=== PATIENT | male | born 1985 | race Caucasian/White ===

== ENCOUNTER 2016-10-17 12:06 | Emergency (ER) | payer SELFPAY ==
[~2016-10-17] VITALS: Ht 185.4 cm; Wt 100.0 kg
[~2016-10-17 12:06] MED LIST: FLEXERIL OR; LORTAB5 PO; NAPROSYN500 MG PO; NO MEDS
[2016-10-17 13:34] LABS: HEMATOCRIT 46.6 % (39.0-50.0); HEMOGLOBIN 14.7 g/dl (14.0-18.0); IMMATURE GRANULOCYTES 0.2 % (0.0-1.0); MEAN CELL VOLUME 83.2 fL CALC (80.0-100.0); MEAN CORPUSCULAR HGB 26.3 pG CALC (26.0-32.0); MEAN CORPUSCULAR HGB CONC 31.5 g/L CALC (32.0-36.0); NEUT# 3.59 thou/uL (1.82-7.42); RED BLOOD COUNT 5.6 mill/uL (4.70-6.10); RED CELL DISTRI WIDTH 13.7 % (11.5-15.5)
[2016-10-17 13:43] LABS: ALBUMIN 4.8 g/dL (3.2-5.0); ALKALINE PHOSPHATASE 70 u/l (38-126); ANION GAP 20 (6-22 (CALC)); BILIRUBIN, TOTAL 0.6 mg/dL (0.0-1.4); BUN 11 mg/dL (9-20); BUN/CREATININE RATIO 11 (12-20 (CALC)); CALCIUM 9.2 mg/dL (8.4-10.2); CARBON DIOXIDE 22 mmol/l (22-30); CHLORIDE 105 mmol/l (95-108); CREATININE 0.9 mg/dL (0.7-1.3); GFR > 60 ML/MIN (>=60 (CALC)); GFR FOR AFR.AMER. > 60 ML/MIN (>=60 (CALC)); GLUCOSE 85 mg/dL (75-110); POTASSIUM 4.1 mmol/l (3.5-5.1); SGOT/AST 34 u/l (17-59); SGPT/ALT 40 u/l (21-72); SODIUM 143 mmol/l (137-146); TOTAL PROTEIN 8.5 g/dL (6.3-8.2)
[2016-10-17 13:55] LABS: MYOGLOBIN 22 ng/mL (0 - 121)
[2016-10-17 17:11] VITALS: BP 119/72
[2016-10-17] MEDS ORDERED: XANAX0.5 MG PO (17:11)
== END 2016-10-17 17:21 | disposition home or self-care (01) | DRG 563 ==
LOC: ED 12:06
PROVIDERS: Emergency Medicine
PROC: 2W3BXYZ Immobilization of Left Upper Arm using Other Device (ICD-10-PCS; principal; 2016-10-17)
DX: S42.022A Displaced fracture of shaft of left clavicle, initial encounter for closed fracture (principal); F41.1 Generalized anxiety disorder; W11.XXXA Fall on and from ladder, initial encounter; Y93.89 Activity, other specified; Y92.89 Other specified places as the place of occurrence of the external cause; F43.0 Acute stress reaction; R06.02 Shortness of breath
CPT/HCPCS: J2060; Q9967

== ENCOUNTER 2018-04-08 15:01 | Emergency (ER) | payer SELFPAY ==
[~2018-04-08] VITALS: Ht 185.4 cm; Wt 121.2 kg
[~2018-04-08 15:01] MED LIST changes: +XANAX0.5 MG PO
[2018-04-08] MEDS ORDERED: TRAMADOL HCL50 MG PO (16:02)
[2018-04-08 16:07] VITALS: BP 149/86
== END 2018-04-08 16:15 | disposition home or self-care (01) | DRG 206 ==
LOC: ED 15:01
DX: S22.32XA Fracture of one rib, left side, initial encounter for closed fracture (principal); S46.912A Strain of unspecified muscle, fascia and tendon at shoulder and upper arm level, left arm, initial encounter; F17.200 Nicotine dependence, unspecified, uncomplicated; W11.XXXA Fall on and from ladder, initial encounter; S42.025D Nondisplaced fracture of shaft of left clavicle, subsequent encounter for fracture with routine healing; X58.XXXD Exposure to other specified factors, subsequent encounter

== ENCOUNTER 2018-06-01 18:54 | Emergency (ER) | payer SELFPAY ==
[~2018-06-01] VITALS: Ht 185.4 cm; Wt 122.0 kg
[~2018-06-01 18:54] MED LIST changes: +TRAMADOL HCL50 MG PO
[2018-06-01 20:20] VITALS: BP 136/84
== END 2018-06-01 20:20 | disposition home or self-care (01) | DRG 605 ==
LOC: ED 18:54
DX: S60.221A Contusion of right hand, initial encounter (principal); F17.200 Nicotine dependence, unspecified, uncomplicated; W22.8XXA Striking against or struck by other objects, initial encounter

== ENCOUNTER 2018-07-29 04:09 | Emergency (ER) | payer SELFPAY ==
[~2018-07-29] VITALS: Ht 185.4 cm; Wt 104.5 kg
[2018-07-29] MEDS ORDERED: NAPROSYN500 MG PO (05:38)
[2018-07-29] MEDS ORDERED: OMEPRAZOLE20 M2 PO (05:38)
[2018-07-29] MEDS ORDERED: BACTRIM DS1 TAB PO (05:46)
[2018-07-29 06:26] VITALS: BP 157/83
== END 2018-07-29 05:55 | disposition home or self-care (01) | DRG 605 ==
LOC: ED 04:09
PROC: 0HQGXZZ Repair Left Hand Skin, External Approach (ICD-10-PCS; principal; 2018-07-29)
PROC: 0HQFXZZ Repair Right Hand Skin, External Approach (ICD-10-PCS; 2018-07-29)
DX: S61.214A Laceration without foreign body of right ring finger without damage to nail, initial encounter (principal); S61.216A Laceration without foreign body of right little finger without damage to nail, initial encounter; S61.211A Laceration without foreign body of left index finger without damage to nail, initial encounter; S60.511A Abrasion of right hand, initial encounter; S60.412A Abrasion of right middle finger, initial encounter; F17.210 Nicotine dependence, cigarettes, uncomplicated; Y92.009 Unspecified place in unspecified non-institutional (private) residence as the place of occurrence of the external cause; W22.8XXA Striking against or struck by other objects, initial encounter

== ENCOUNTER 2018-10-02 22:06 | Emergency (ER) | payer SELFPAY ==
[~2018-10-02] VITALS: Ht 185.4 cm; Wt 126.8 kg
[~2018-10-02 22:06] MED LIST changes: +BACTRIM DS1 TAB PO; +OMEPRAZOLE20 M2 PO
[2018-10-02] MEDS ORDERED: PRILOSEC20 MG/CAP PO (22:23)
[2018-10-02 23:32] LABS: MEAN CELL VOLUME 88.1 fL CALC (80.0-100.0); MEAN CORPUSCULAR HGB 27.3 pG CALC (26.0-32.0); NEUT# 8.61 thou/uL (1.82-7.42); RED BLOOD COUNT 4.54 mill/uL (4.70-6.10); RED CELL DISTRI WIDTH 14.6 % (11.5-15.5)
[2018-10-02 23:33] LABS: HEMOGLOBIN 12.4 g/dl (14.0-18.0)
[2018-10-03] MEDS ORDERED: DOXYCYCL HYC100 MG PO (00:15)
[2018-10-03 00:20] VITALS: BP 132/77
== END 2018-10-03 00:28 | disposition home or self-care (01) | DRG 203 ==
LOC: ED 22:06
PROVIDERS: Family Medicine
DX: J20.9 Acute bronchitis, unspecified (principal); J06.9 Acute upper respiratory infection, unspecified; F17.210 Nicotine dependence, cigarettes, uncomplicated

== ENCOUNTER 2019-10-23 02:49 | Emergency (ER) | payer SELFPAY ==
[~2019-10-23] VITALS: Ht 185.4 cm; Wt 127.0 kg
[~2019-10-23 02:49] MED LIST changes: +DOXYCYCL HYC100 MG PO; +PRILOSEC20 MG/CAP PO
[2019-10-23 04:04] LABS: HEMOGLOBIN 10.7 g/dl (14.0-18.0); IMMATURE GRANULOCYTES 1.6 % (0.0-5.0); MEAN CELL VOLUME 90.4 fL CALC (80.0-100.0); MEAN CORPUSCULAR HGB 28.5 pG CALC (26.0-32.0); MEAN CORPUSCULAR HGB CONC 31.5 g/dL CAL (32.0-36.0); NEUT# 4.57 thou/uL (1.82-7.42); RED BLOOD COUNT 3.76 mill/uL (4.70-6.10); RED CELL DISTRI WIDTH 15.1 % (11.5-15.5)
[2019-10-23 04:04] LABS: URINE BILIRUBIN - DIPSTICK NEGATIVE (NEGATIVE); URINE BLOOD DIPSTICK NEGATIVE (NEGATIVE); URINE COLOR YELLOW; URINE GLUCOSE - DIPSTICK NEGATIVE (NEGATIVE); URINE KETONE NEGATIVE (NEGATIVE); URINE LEUK ESTERASE NEGATIVE (NEGATIVE); URINE NITRITE - DIPSTICK NEGATIVE (Negative); URINE PH 5.5 (4.5-8.0); URINE PROTEIN - DIPSTICK NEGATIVE (NEG-TRACE); URINE SPECIFIC GRAVITY <=1.005; URINE UROBILINOGEN - DIPSTICK 0.2 E.U./dL (0.2)
[2019-10-23 04:15] LABS: ALKALINE PHOSPHATASE 83 u/l (38-126); AMYLASE 36 u/l (30-110); BILIRUBIN, TOTAL 0.4 mg/dL (0.0-1.4); BUN 10 mg/dL (9-20); BUN/CREATININE RATIO 14 (12-20 (CALC)); CHLORIDE 104 mmol/l (95-108); CREATININE 0.7 mg/dL (0.7-1.3); GFR > 60 ML/MIN (>=60 (CALC)); GFR FOR AFR.AMER. > 60 ML/MIN (>=60 (CALC)); LIPASE 40 u/l (23-300); POTASSIUM 3.7 mmol/l (3.5-5.1); SGOT/AST 50 u/l (17-59); SODIUM 137 mmol/l (137-146); TOTAL PROTEIN 7.2 g/dL (6.3-8.2)
[2019-10-23 04:17] LABS: ALBUMIN 3.8 g/dL (3.2-5.0); ANION GAP 10 (6-22 (CALC)); CARBON DIOXIDE 27 mmol/l (22-30)
[2019-10-23 04:27] LABS: MYOGLOBIN 36 ng/mL (0 - 121)
[2019-10-23] MEDS ORDERED: XANAX1 MG PO (05:56)
[2019-10-23] MEDS ORDERED: BUPRENORPHIN8 MG SL (05:58)
[2019-10-23] MEDS ORDERED: BACTRIM DS1 TAB PO (06:12)
[2019-10-23] MEDS ORDERED: LASIX 40 MG TAB40 MG PO (06:12)
[2019-10-23 06:29] VITALS: BP 101/51
== END 2019-10-23 06:10 | disposition home or self-care (01) | DRG 301 ==
LOC: ED 02:49
PROVIDERS: Emergency Medicine
DX: I87.2 Venous insufficiency (chronic) (peripheral) (principal); F17.290 Nicotine dependence, other tobacco product, uncomplicated; Z91.19 Patient's noncompliance with other medical treatment and regimen

== ENCOUNTER 2019-12-07 21:47 | Emergency (ER) | payer SELFPAY ==
[~2019-12-07] VITALS: Ht 188 cm; Wt 131.8 kg
[~2019-12-07 21:47] MED LIST changes: +BUPRENORPHIN8 MG SL; +LASIX 40 MG TAB40 MG PO; +XANAX1 MG PO
[2019-12-07] MEDS ORDERED: CIPROFLOXACN500 MG PO (22:52)
[2019-12-07] MEDS ORDERED: CLEOCIN300 MG PO (22:52)
[2019-12-07] MEDS ORDERED: NAPROXEN500 MG PO (22:53)
[2019-12-08 00:20] VITALS: BP 134/80
== END 2019-12-08 00:20 | disposition home or self-care (01) | DRG 563 ==
LOC: ED 21:47
PROC: 2W3KX1Z Immobilization of Left Finger using Splint (ICD-10-PCS; principal; 2019-12-07)
DX: S62.631A Displaced fracture of distal phalanx of left index finger, initial encounter for closed fracture (principal); S61.231A Puncture wound without foreign body of left index finger without damage to nail, initial encounter; F17.210 Nicotine dependence, cigarettes, uncomplicated; W54.0XXA Bitten by dog, initial encounter; Y92.009 Unspecified place in unspecified non-institutional (private) residence as the place of occurrence of the external cause

== ENCOUNTER 2020-03-01 01:48 | Emergency (ER) | payer SELFPAY ==
[~2020-03-01] VITALS: Ht 188 cm; Wt 127.4 kg
[~2020-03-01 01:48] MED LIST changes: +CIPROFLOXACN500 MG PO; +CLEOCIN300 MG PO; +NAPROXEN500 MG PO
[2020-03-01] MEDS ORDERED: ZPAK PO (03:07)
[2020-03-01 03:30] VITALS: BP 138/77
== END 2020-03-01 03:33 | disposition home or self-care (01) | DRG 153 ==
LOC: ED 01:48
DX: J02.9 Acute pharyngitis, unspecified (principal); L60.0 Ingrowing nail; I10 Essential (primary) hypertension; F41.9 Anxiety disorder, unspecified; F17.210 Nicotine dependence, cigarettes, uncomplicated

== ENCOUNTER 2020-04-13 13:03 | Emergency (ER) | payer SELFPAY ==
[~2020-04-13] VITALS: Ht 188 cm; Wt 180.0 kg
[~2020-04-13 13:03] MED LIST changes: +ZPAK PO
[2020-04-13 13:39] LABS: IMMATURE GRANULOCYTES 0.6 % (0.0-5.0); MEAN CELL VOLUME 88.7 fL CALC (80.0-100.0); MEAN CORPUSCULAR HGB 28.1 pG CALC (26.0-32.0); MEAN CORPUSCULAR HGB CONC 31.7 g/dL CAL (32.0-36.0); NEUT# 6.18 thou/uL (1.82-7.42); RED BLOOD COUNT 4.7 mill/uL (4.70-6.10); RED CELL DISTRI WIDTH 14.5 % (11.5-15.5)
[2020-04-13 13:41] LABS: HEMATOCRIT 41.7 % (39.0-50.0); HEMOGLOBIN 13.2 g/dl (14.0-18.0)
[2020-04-13 14:06] LABS: ACT PARTIAL THROMBO TIME 23.9 SECONDS (20.0-32.5); INTERNATIONAL NORMALIZED RATIO 1.1 RATIO (0.7-1.3); PROTHROMBIN TIME 10.6 SECONDS (9.0-12.5)
[2020-04-13 14:09] LABS: ALBUMIN 4.5 g/dL (3.2-5.0); ALKALINE PHOSPHATASE 95 u/l (38-126); AMYLASE 52 u/l (30-110); ANION GAP 20 (6-22 (CALC)); BILIRUBIN, TOTAL 1.3 mg/dL (0.0-1.4); BUN 7 mg/dL (9-20); BUN/CREATININE RATIO 9 (12-20 (CALC)); CARBON DIOXIDE 19 mmol/l (22-30); CHLORIDE 103 mmol/l (95-108); CREATININE 0.8 mg/dL (0.7-1.3); ETHYL ALCOHOL 0 mg/dl (0-30); GFR > 60 ML/MIN (>=60 (CALC)); GFR FOR AFR.AMER. > 60 ML/MIN (>=60 (CALC)); LIPASE 52 u/l (23-300); POTASSIUM 3.8 mmol/l (3.5-5.1); SGOT/AST 140 u/l (17-59); SODIUM 138 mmol/l (137-146); TOTAL PROTEIN 8.4 g/dL (6.3-8.2)
[2020-04-13 14:13] LABS: URINE BILIRUBIN - DIPSTICK NEGATIVE (NEGATIVE); URINE BLOOD DIPSTICK SMALL (NEGATIVE); URINE COLOR YELLOW; URINE GLUCOSE - DIPSTICK NEGATIVE (NEGATIVE); URINE KETONE 15 mg/dL (NEGATIVE); URINE LEUK ESTERASE NEGATIVE (NEGATIVE); URINE NITRITE - DIPSTICK NEGATIVE (Negative); URINE PH 5.5 (4.5-8.0); URINE PROTEIN - DIPSTICK 100 mg/dL (NEG-TRACE); URINE SPECIFIC GRAVITY >=1.030; URINE UROBILINOGEN - DIPSTICK 0.2 E.U./dL (0.2)
[2020-04-13 14:15] LABS: URINE MUCUS MODERATE hpf (NONE-FEW); URINE RBC 0-2 RBC/hpf (0-5)
[2020-04-13 14:38] VITALS: BP 160/83
== END 2020-04-13 16:15 | disposition home or self-care (01) | DRG 563 ==
LOC: ED 13:03
DX: S42.032A Displaced fracture of lateral end of left clavicle, initial encounter for closed fracture (principal); S00.03XA Contusion of scalp, initial encounter; R56.9 Unspecified convulsions; F10.10 Alcohol abuse, uncomplicated; I10 Essential (primary) hypertension; F41.0 Panic disorder [episodic paroxysmal anxiety]; F17.210 Nicotine dependence, cigarettes, uncomplicated; V18.0XXA Pedal cycle driver injured in noncollision transport accident in nontraffic accident, initial encounter; Y93.55 Activity, bike riding
CPT/HCPCS: J2060

== ENCOUNTER 2020-05-10 23:34 | Emergency (ER) | payer SELFPAY ==
[~2020-05-10] VITALS: Ht 188 cm; Wt 127.0 kg
[2020-05-11 00:29] LABS: HEMOGLOBIN 14.3 g/dl (14.0-18.0); IMMATURE GRANULOCYTES 0.3 % (0.0-5.0); MEAN CELL VOLUME 88.4 fL CALC (80.0-100.0); MEAN CORPUSCULAR HGB 28.1 pG CALC (26.0-32.0); MEAN CORPUSCULAR HGB CONC 31.8 g/dL CAL (32.0-36.0); NEUT# 3.91 thou/uL (1.82-7.42); RED BLOOD COUNT 5.09 mill/uL (4.70-6.10)
[2020-05-11 00:34] LABS: URINE BLOOD DIPSTICK NEGATIVE (NEGATIVE); URINE COLOR YELLOW; URINE GLUCOSE - DIPSTICK NEGATIVE (NEGATIVE); URINE KETONE NEGATIVE (NEGATIVE); URINE LEUK ESTERASE NEGATIVE (NEGATIVE); URINE NITRITE - DIPSTICK NEGATIVE (Negative); URINE PH 6.5 (4.5-8.0); URINE PROTEIN - DIPSTICK 30 mg/dL (NEG-TRACE); URINE SPECIFIC GRAVITY 1.025
[2020-05-11 00:35] LABS: URINE BILIRUBIN - DIPSTICK NEGATIVE (NEGATIVE)
[2020-05-11 00:47] LABS: ALBUMIN 4.7 g/dL (3.2-5.0); ALKALINE PHOSPHATASE 118 u/l (38-126); ANION GAP 17 (6-22 (CALC)); BILIRUBIN, TOTAL 0.9 mg/dL (0.0-1.4); BUN 8 mg/dL (9-20); BUN/CREATININE RATIO 12 (12-20 (CALC)); CHLORIDE 105 mmol/l (95-108); CREATININE 0.6 mg/dL (0.7-1.3); ETHYL ALCOHOL 86 mg/dl (0-30); GFR > 60 ML/MIN (>=60 (CALC)); GFR FOR AFR.AMER. > 60 ML/MIN (>=60 (CALC)); POTASSIUM 3.9 mmol/l (3.5-5.1); SGOT/AST 132 u/l (17-59); SODIUM 143 mmol/l (137-146); TOTAL PROTEIN 9.1 g/dL (6.3-8.2); URINE BACTERIA FEW hpf; URINE MUCUS MANY hpf (NONE-FEW); URINE SQUAMOUS EPITHELIAL CELL FEW EPI/hpf (0-FEW); URINE WBC 0-2 WBC/hpf (0-5)
[2020-05-11 00:48] LABS: CARBON DIOXIDE 25 mmol/l (22-30)
[2020-05-11 01:00] LABS: MYOGLOBIN 22 ng/mL (0 - 121)
[2020-05-11 02:12] VITALS: BP 163/87
== END 2020-05-11 02:18 | disposition home or self-care (01) | DRG 897 ==
LOC: ED 23:34
PROVIDERS: Family Medicine
DX: F13.139 Sedative, hypnotic or anxiolytic abuse with withdrawal, unspecified (principal); F10.10 Alcohol abuse, uncomplicated; F41.0 Panic disorder [episodic paroxysmal anxiety]; I10 Essential (primary) hypertension; F17.200 Nicotine dependence, unspecified, uncomplicated; Z91.14 Patient's other noncompliance with medication regimen
CPT/HCPCS: J2060

== ENCOUNTER 2020-05-26 03:44 | Emergency (ER) | payer SELFPAY ==
[~2020-05-26] VITALS: Ht 188 cm; Wt 131.8 kg
[2020-05-26] MEDS ORDERED: CLINDAMYCIN300 M1 PO (04:44)
[2020-05-26 04:50] VITALS: BP 166/100
== END 2020-05-26 04:50 | disposition home or self-care (01) | DRG 159 ==
LOC: ED 03:44
DX: K02.9 Dental caries, unspecified (principal); I10 Essential (primary) hypertension; F41.0 Panic disorder [episodic paroxysmal anxiety]; F10.10 Alcohol abuse, uncomplicated; F17.200 Nicotine dependence, unspecified, uncomplicated

== ENCOUNTER 2020-06-13 04:59 | Emergency (ER) | payer SELFPAY ==
[~2020-06-13] VITALS: Ht 188 cm; Wt 112.0 kg
[~2020-06-13 04:59] MED LIST changes: +CLINDAMYCIN300 M1 PO
[2020-06-13] MEDS ORDERED: MOTRIN800 MG PO ×2 (05:27→07:13)
[2020-06-13] MEDS ORDERED: CLINDAMYCIN300 M1 PO ×2 (05:27→07:13)
[2020-06-13 06:00] VITALS: BP 168/78
== END 2020-06-13 06:00 | disposition home or self-care (01) | DRG 159 ==
LOC: ED 04:59
DX: K02.9 Dental caries, unspecified (principal); I10 Essential (primary) hypertension; F41.0 Panic disorder [episodic paroxysmal anxiety]; G89.29 Other chronic pain; M54.9 Dorsalgia, unspecified; F17.210 Nicotine dependence, cigarettes, uncomplicated

== ENCOUNTER 2020-08-21 | Emergency (ER) | payer SELFPAY ==
[~2020-08-21] MED LIST changes: +MOTRIN800 MG PO
[2020-08-21 16:06] LABS: HEMATOCRIT 39.9 % (39.0-50.0); HEMOGLOBIN 12.6 g/dl (14.0-18.0); IMMATURE GRANULOCYTES 1.1 % (0.0-5.0); MEAN CORPUSCULAR HGB 30.1 pG CALC (26.0-32.0); MEAN CORPUSCULAR HGB CONC 31.6 g/dL CAL (32.0-36.0); NEUT# 6.36 thou/uL (1.82-7.42); RED BLOOD COUNT 4.18 mill/uL (4.70-6.10); RED CELL DISTRI WIDTH 14.7 % (11.5-15.5)
[2020-08-21 16:07] LABS: URINE BILIRUBIN - DIPSTICK NEGATIVE (NEGATIVE); URINE BLOOD DIPSTICK TRACE-LYSED (NEGATIVE); URINE COLOR YELLOW; URINE GLUCOSE - DIPSTICK NEGATIVE (NEGATIVE); URINE KETONE >=80 mg/dL (NEGATIVE); URINE LEUK ESTERASE NEGATIVE (NEGATIVE); URINE PH 5.5 (4.5-8.0); URINE PROTEIN - DIPSTICK 100 mg/dL (NEG-TRACE); URINE SPECIFIC GRAVITY >=1.030
[2020-08-21 16:15] LABS: URINE NITRITE - DIPSTICK NEGATIVE (Negative)
[2020-08-21 16:17] LABS: URINE RBC 0-2 RBC/hpf (0-5)
[2020-08-21 16:22] LABS: MEAN CELL VOLUME 95.5 fL CALC (80.0-100.0)
[2020-08-21 16:23] LABS: ALBUMIN 4.5 g/dL (3.2-5.0); ALKALINE PHOSPHATASE 117 u/l (38-126); BUN 9 mg/dL (9-20); BUN/CREATININE RATIO 17 (12-20 (CALC)); CARBON DIOXIDE 20 mmol/l (22-30); CHLORIDE 99 mmol/l (95-108); CREATININE 0.6 mg/dL (0.7-1.3); ETHYL ALCOHOL 0 mg/dl (0-30); GFR > 60 ML/MIN (>=60 (CALC)); GFR FOR AFR.AMER. > 60 ML/MIN (>=60 (CALC)); LIPASE 49 u/l (23-300); MAGNESIUM 1.4 mg/dL (1.6-2.3); POTASSIUM 4.2 mmol/l (3.5-5.1); TOTAL PROTEIN 8.4 g/dL (6.3-8.2)
[2020-08-21 16:30] LABS: ANION GAP 18 (6-22 (CALC)); BILIRUBIN, TOTAL 3.2 mg/dL (0.0-1.4); SGOT/AST 457 u/l (17-59); SODIUM 133 mmol/l (137-146)
== END 2020-08-21 18:28 | disposition left against medical advice (07) | DRG 894 ==
PROVIDERS: Family Medicine
DX: F10.139 Alcohol abuse with withdrawal, unspecified (principal); G40.89 Other seizures; R74.01 Elevation of levels of liver transaminase levels; F19.10 Other psychoactive substance abuse, uncomplicated; F41.0 Panic disorder [episodic paroxysmal anxiety]; I10 Essential (primary) hypertension; F17.200 Nicotine dependence, unspecified, uncomplicated; Z59.0 Homelessness; Z91.19 Patient's noncompliance with other medical treatment and regimen
CPT/HCPCS: J2060; J3475

== ENCOUNTER 2020-08-29 15:27 | Observation (INO) | payer SELFPAY ==
[~2020-08-29] VITALS: Ht 188 cm; Wt 115.0 kg
--- NOTE | 2020-08-29 15:27 | NUR ---
PT IMMEDIATLY TO TREATMENT AREA. PT INSTRUCTED IN PLAN OF CARE.
--- NOTE | 2020-08-29 16:30 | NUR ---
RESTING ON STRETCHER. CALL GATES WITHIN REACH.
[2020-08-29 16:54] LABS: HEMATOCRIT 39.9 % (39.0-50.0); HEMOGLOBIN 12.3 g/dl (14.0-18.0); IMMATURE GRANULOCYTES 0.3 % (0.0-5.0); MEAN CELL VOLUME 96.8 fL CALC (80.0-100.0); MEAN CORPUSCULAR HGB 29.9 pG CALC (26.0-32.0); MEAN CORPUSCULAR HGB CONC 30.8 g/dL CAL (32.0-36.0); NEUT# 4.81 thou/uL (1.82-7.42); RED BLOOD COUNT 4.12 mill/uL (4.70-6.10); RED CELL DISTRI WIDTH 15.2 % (11.5-15.5)
[2020-08-29 17:07] LABS: ALBUMIN 4.3 g/dL (3.2-5.0); ALKALINE PHOSPHATASE 100 u/l (38-126); ANION GAP 13 (6-22 (CALC)); BILIRUBIN, TOTAL 1.3 mg/dL (0.0-1.4); BUN 11 mg/dL (9-20); BUN/CREATININE RATIO 21 (12-20 (CALC)); CARBON DIOXIDE 26 mmol/l (22-30); CHLORIDE 101 mmol/l (95-108); CREATININE 0.5 mg/dL (0.7-1.3); ETHYL ALCOHOL 33 mg/dl (0-30); GFR > 60 ML/MIN (>=60 (CALC)); GFR FOR AFR.AMER. > 60 ML/MIN (>=60 (CALC)); LIPASE 31 u/l (23-300); MAGNESIUM 1.4 mg/dL (1.6-2.3); POTASSIUM 3.4 mmol/l (3.5-5.1); SGOT/AST 140 u/l (17-59); SODIUM 137 mmol/l (137-146); TOTAL PROTEIN 8.3 g/dL (6.3-8.2)
[2020-08-29 17:20] LABS: ACT PARTIAL THROMBO TIME 28.1 SECONDS (20.0-32.5); INTERNATIONAL NORMALIZED RATIO 1.1 RATIO (0.7-1.3); PROTHROMBIN TIME 11.1 SECONDS (9.0-12.5)
--- NOTE | 2020-08-29 17:30 | NUR ---
RESTING ON STRETCHER. CALL GATES WITHIN REACH.
--- NOTE | 2020-08-29 18:30 | NUR ---
RESTING ON STRETCHER. AWAITING BED ASSIGNMENT.
[2020-08-29] MEDS ORDERED: XANAX1 MG PO (18:34)
[2020-08-29] MEDS ORDERED: SUBOXONE1 MI1 SL (18:34)
[2020-08-29 18:56] LABS: URINE BLOOD DIPSTICK NEGATIVE (NEGATIVE); URINE GLUCOSE - DIPSTICK NEGATIVE (NEGATIVE); URINE KETONE TRACE mg/dL (NEGATIVE); URINE LEUK ESTERASE NEGATIVE (NEGATIVE); URINE PH 7.5 (4.5-8.0); URINE PROTEIN - DIPSTICK 100 mg/dL (NEG-TRACE)
[2020-08-29 18:59] LABS: URINE BILIRUBIN - DIPSTICK MODERATE (NEGATIVE); URINE COLOR AMBER; URINE NITRITE - DIPSTICK POSITIVE (Negative)
--- NOTE | 2020-08-29 19:00 | NUR ---
REPORT GIVEN TO MAI NEWELL.
[2020-08-29 19:14] LABS: URINE MUCUS FEW hpf (NONE-FEW); URINE RBC 0-2 RBC/hpf (0-5); URINE WBC 0-2 WBC/hpf (0-5)
--- NOTE | 2020-08-29 19:37 | NUR ---
CALLED REPORT TO FLOOR AND GAVE REPORT TO RN. BRINGING K+ WITH PATIENT
[2020-08-29 19:50] VITALS: BP 146/86
--- NOTE | 2020-08-29 21:00 | NUR ---
PATIENT ADMITTED FROM ER VIA WHEELCHAIR WITH ER STAFF IN ATTENDANCE. PATIENT ABLE TO MOVE TO THE BED. PATIENT IS AWAKE ALERT AND ORIENTEDX3. PATIENT IS QUITE ANXIOUS WITH VISABLE TREMORS NOTED. PATIENT WITH IV SITE TO LEFT HAND WITH IVF BANANA BAG INTACT AND INFUSING ORDERED. MAG SULFATE INFUSING ORDERED. PATIENT ADMITTED FOR POSSIBLE SEIZURE-PATIENT STATES THAT HE NOT SURE IF HE HAD A SEIZURE OR NOT. PATIENT STATES THAT HE IS HOMELESS AND LIVES IN A TENT AND THAT SOMEONE ELSE CALLED EMS. PATIENT ADMITS THAT HE DRINKS HALF A GALLON OF RUM A DAY AND TAKE XANAX THAT HE IS PERSCRIBED. STOPPED DRINK A COUPLE OF DAYS AGO BUT DID FIND A LITTLE BIT THIS MORNING AND DRANK IT. PATIENT MEDICATED WITH LIBRIUM 25MG PO FOR ANXIETY. PROVIDED WITH MEAL AND DRINKS. LUNGS ARE CLEAR. ABD IS SOFT WITH ACTIVE BS. NO PEDAL EDEMA NOTED. PULSES ARE PALPABLE. PATIENT ORIENTED TO ROOM AND SURROUNDINGS. INSTRUCTED ON USE OF NURSE CALL LIGHT SYSTEM, TV REMOTE, AND PHONE. SAFETY PRECAUTIONS REINFORCED. CALL LIGHT IN REACH. WILL CONT TO MONITOR.
--- NOTE | 2020-08-29 21:30 | NUR ---
PATIENT RESTING IN BED. ATE FAIR AMT OF DINNER AND SO FAR TOLERATING WELL. KCL RIDER INFUSING ORDERED. CALL LIGHT IN REACH. WILL CONT TO MONITOR.
--- NOTE | 2020-08-29 22:15 | NUR ---
PATIENT MIN ASSIST TO THE BR-DENIES ANY DIFFICULTY IN URINATION. STATES THAT HIS LAST BM WAS YESTERDAY. TELE MONITOR IN PLACE. WILL CONT TO MONITOR.
--- NOTE | 2020-08-29 22:52 | NUR ---
PATIENT RESTING IN BED AT THIS TIME-PATIENT WITH SEVERE TREMORS AND HIGH ANXIETY-ASKING FOR ATIVAN. PATIENT MEDICATED WITH ATIVAN 1MG FOR WITHDRAWL SX. SAFETY PRECAUTIONS REINFORCED. CALL LIGHT IN REACH. WILL CONT TO MONITOR.
[2020-08-30] VITALS (7 sets, daily range): BP systolic 116–180; BP diastolic 79–120
--- NOTE | 2020-08-30 02:11 | NUR ---
PATIENT CALLED ASKING FOR SOME MORE SNACKS AND FOOD. PATIENT PROVIDED WITH SOME CEREAL BARS AND ANOTHER FROZEN MEAL THAT WAS HEATED UP IN [place]. PATIENT IS EATING AND DRINKING FINE-NO NAUSEA NOTED.TELE MONITOR IN PLACE. IVF BANANA BAG PATENT AND INFUSING VIA LEFT HAND SITE. CALL LIGHT IN REACH. WILL CONT TO MONITOR.
--- NOTE | 2020-08-30 03:57 | NUR ---
PATIENT CALLING AGAIN FOR ATIVAN-PATIENT CONT TO HAVE SEVERE TREMORS AND HIGH ANXIETY-MEDICATED WITH ATIVAN 1MG IVP FOR CIWA SCORE OF 6. IVF NS PATENT AND INFUSING AT 100CC/HR VIA LEFT HAND SITE. CALL LIGHT IN REACH. WILL CONT TO MONITOR.
[2020-08-30] MEDS ORDERED: BUPRENORPHIN8 MG SL (07:13)
--- NOTE | 2020-08-30 08:30 | NUR ---
Patient screened for PT intervention and no needs are identified at this time
[2020-08-30 09:20] LABS: HEMATOCRIT 39.3 % (39.0-50.0); IMMATURE GRANULOCYTES 0.5 % (0.0-5.0); MEAN CORPUSCULAR HGB 29.9 pG CALC (26.0-32.0); MEAN CORPUSCULAR HGB CONC 30.5 g/dL CAL (32.0-36.0); NEUT# 3.78 thou/uL (1.82-7.42); RED BLOOD COUNT 4.01 mill/uL (4.70-6.10); RED CELL DISTRI WIDTH 14.8 % (11.5-15.5)
[2020-08-30 09:38] LABS: ALBUMIN 3.9 g/dL (3.2-5.0); ALKALINE PHOSPHATASE 86 u/l (38-126); ANION GAP 10 (6-22 (CALC)); BILIRUBIN, TOTAL 1.5 mg/dL (0.0-1.4); BUN 12 mg/dL (9-20); BUN/CREATININE RATIO 21 (12-20 (CALC)); CARBON DIOXIDE 28 mmol/l (22-30); CHLORIDE 102 mmol/l (95-108); CREATININE 0.6 mg/dL (0.7-1.3); GFR > 60 ML/MIN (>=60 (CALC)); GFR FOR AFR.AMER. > 60 ML/MIN (>=60 (CALC)); POTASSIUM 3.6 mmol/l (3.5-5.1); SGOT/AST 102 u/l (17-59); SODIUM 137 mmol/l (137-146); TOTAL PROTEIN 7.5 g/dL (6.3-8.2)
[2020-08-30 09:40] LABS: MAGNESIUM 1.8 mg/dL (1.6-2.3)
--- NOTE | 2020-08-30 10:06 | NUR ---
PT IS ALERT AND ORIENTED X 3. LUNGS CLEAR, RA. PT SEEN TO HAVE MILD TREMORS PER ALCOHOL WITHDRAWAL. PT AWARE OF NEED FOR BUPRENORPHINE TO BE BROUGHT FROM HIS SUPPLY. DR HOUSER HAS SEEN PT, ENCOURAGES REHAB WHEN DISCHARGED.
--- NOTE | 2020-08-30 12:23 | NUR ---
PT CONTINUES WITH SLIGHT TREMORS BOTH HANDS, PROVIDED MEDS AVAILABLE. PT STATES THAT HE WANTS TO QUIT DRINKING BUT HE DOES NOT DO WELL IN REHABS.
--- NOTE | 2020-08-30 17:46 | NUR ---
SLIGHT TREMORS REMAIN. PT HAS BEEN SLEEPING MOST OF THE AFTERNOON. PT STATES THAT HE CAN GO 2-3 DAYS WITHOUT WITHDRAWAL SYMPTOMS FROM BUPRENORPHINE, BUT HE WILL STILL HAVE SOMEONE BRING IT IN. NO DISTRESS, ATIVAN PROVIDED FOR STATED ANXIETY.
--- NOTE | 2020-08-30 19:30 | NUR ---
PATIENT UP IN THE ROOM-PATIENT CONT TO BE HIGH ANXIETY WITH WITHDRAWL SX. TELE MONITOR IN PLACE. IVF PATENT AND INFUSING VIA LEFT HAND SITE ORDERED. STILL WITH TREMORS. APPETITE IS GOOD WITH NO NAUSEA OR VOMITTING. CONCERNS ABOUT HIS DOGS. BACK IN BED. CALL LIGHT IN REACH. WILL CONT TO MONITOR.
--- NOTE | 2020-08-30 20:45 | NUR ---
BP IS ELEVATED AT 180/120. PATIENT IS QUITE ANXIOUS AT THIS TIME. DR. HOUSER CALLED AND NEW ORDER RECIEVED. XAPADMINIX WAS D/C'ED, NEW ORDER FOR LABETALOL 10MG IVP FOR SBP>160 AND CHANGE IN ATIVAN FREQUENCY TO Q2H INSTEAD OF Q4H. WILL MEDICATE SOON PROFILED ON EMAR. WILL CONT TO MONITOR,
[2020-08-31] VITALS: BP 144/94
--- NOTE | 2020-08-31 00:45 | NUR ---
PATIENT RESTING IN BED-C/O FEELING ANXIOUS, SLIGHT HEADACHE AND STILL WITH TREMORS. MEDICATED WITH ATIVAN 1MG IVP VIA RIGHT HAND SITE. IVF NS PATENT AND INFUSING AT 100CC/HR AT THIS TIME. NO NAUSEA. EATING WITHOUT ANY DIFFICULTY. UP TO THE BR TO VOID. STATES THAT HE HAD 2 BM'S YESTERDAY. TELE MONITOR IN PLACE. LAST READING WAS [id number]. CALL LIGHT IN REACH. WILL CONT TO MONITOR.
--- NOTE | 2020-08-31 02:28 | NUR ---
PATIENT WITH MULTIPLE COMPLAINTS ABOUT DREAMS, HEADACHES HIGH ANXIETY-MEDICATED WITH LIBRIUM 25MG PO AND TYLENOL 650MG PO ORDERED. WILL MEDICATED WITH ATIVAN WHEN ABLE. CALL LIGHT IN REACH. WILL CONT TO MONITOR.
[2020-08-31 03:30] VITALS: BP 136/90
--- NOTE | 2020-08-31 04:00 | NUR ---
PATIENT RESTING IN BED WITH EYES CLOSED. RESPS ARE EVEN AND UNLABORED. IVF PATENT AND INFUSING VIA RIGHT HAND SITE AT 100CC/HR. TELE MONITOR IN PLACE. CALL LIGHT IN REACH. WILL CONT TO MONITOR.
[2020-08-31 06:04] LABS: HEMATOCRIT 38.9 % (39.0-50.0); HEMOGLOBIN 11.9 g/dl (14.0-18.0); MEAN CELL VOLUME 99.2 fL CALC (80.0-100.0); MEAN CORPUSCULAR HGB 30.4 pG CALC (26.0-32.0); MEAN CORPUSCULAR HGB CONC 30.6 g/dL CAL (32.0-36.0); RED BLOOD COUNT 3.92 mill/uL (4.70-6.10); RED CELL DISTRI WIDTH 14.8 % (11.5-15.5)
[2020-08-31 06:32] LABS: ANION GAP 14 (6-22 (CALC)); BUN 9 mg/dL (9-20); BUN/CREATININE RATIO 17 (12-20 (CALC)); CARBON DIOXIDE 24 mmol/l (22-30); CHLORIDE 104 mmol/l (95-108); CREATININE 0.6 mg/dL (0.7-1.3); GFR > 60 ML/MIN (>=60 (CALC)); GFR FOR AFR.AMER. > 60 ML/MIN (>=60 (CALC)); MAGNESIUM 1.6 mg/dL (1.6-2.3); POTASSIUM 3.7 mmol/l (3.5-5.1); SODIUM 138 mmol/l (137-146)
[2020-08-31 07:20] VITALS: BP 149/65
--- NOTE | 2020-08-31 10:10 | NUR ---
PT SEEN AWAKE, ALERT, DROWSY THIS MORNING. PT WAS PROVIDED BUPRENORPHINE THIS MORNING PER HAVING FOUND TWO OF HIS OWN IN HIS BAG. LUNGS CLEAR, RA. PT STILL SLIGHTLY SHAKY PER WITHDRAWAL.
[2020-08-31 11:08] VITALS: BP 142/77
--- NOTE | 2020-08-31 11:38 | NUR ---
PT CALLED TO SAY THAT HE NEEDED TO LEAVE DUE TO SOMEONE WANTING TO HURT HIS DOGS. IV REMOVED, PT SIGNED AMA FORM. PT STATES THAT HE DOES NOT WANT TO LEAVE AMA, WILL WAIT FOR PAPERS IN THE LOBBY IF WE CAN GET THEM THERE IN TIME. HIS RIDE IS ALWAYS IN A HURRY AND WILL NOT WAIT IF HE IS NOT THERE. MARCEL AWARE, WILL WORK ON HIS DISCHARGE AT THIS TIME.
--- NOTE | 2020-08-31 11:59 | NUR ---
PT VERBALIZED UNDERSTANDING OF DC INSTRUCTIONS, AMBULATORY TO PARKING LOT. PT WAS FOUND WALKING AWAY FROM HOSPITAL, BUT RETURNED TO SIGN PAPER. PT WITH STEADY GAIT HE LEAVES, ENCOURAGED TO COMPLETE HIS ALCOHOL WITHDRAWAL AND REFRAIN FROM FURTHER USE.
== END 2020-08-31 11:34 | disposition home or self-care (01) | DRG 897 ==
LOC: ED 15:27 → ED-I 15:53 → ED 18:16 → MS2 18:17
PROVIDERS: Nurse Practitioner; ADMIT Internal Medicine; ATTEND Internal Medicine
DX: F10.139 Alcohol abuse with withdrawal, unspecified (principal); R56.9 Unspecified convulsions; E87.6 Hypokalemia; E83.42 Hypomagnesemia; R11.2 Nausea with vomiting, unspecified; F19.10 Other psychoactive substance abuse, uncomplicated; I10 Essential (primary) hypertension; G89.4 Chronic pain syndrome; G40.909 Epilepsy, unspecified, not intractable, without status epilepticus; F41.9 Anxiety disorder, unspecified; F32.9 Major depressive disorder, single episode, unspecified; Z20.822 Contact with and (suspected) exposure to COVID-19
CPT/HCPCS: G0378; J1650; J1953; J2060; J3475; S0164